=== PATIENT | female | born 1980 | race Caucasian/White ===

== ENCOUNTER 2018-12-22 13:44 | Emergency (ER) | payer SELFPAY ==
[2018-12-22] MEDS ORDERED: predniSONE 20 MG Tab PO ONE (14:23)
--- NOTE | 2018-12-22 14:26 | EDM.PDOC ---
ED HPI GENERAL MEDICAL PROBLEM - General Chief Complaint: Drug or Alcohol Abuse Stated Complaint: POSSIBLE OVERDOSE Time Seen by Provider: 12/22/18 14:09 Source of Information: Reports: Patient, RN Notes Reviewed (38-year-old female is brought in by EMS after apparent heroin overdose. What we understand she injected meth and heroin and then reportedly passed out. EMS was called IS seen but upon their arrival she had awakened. Information we are getting is from the commissioned police officer that has brought her here to the ED. When she did awaken she thoughts that perhaps she had accidentally injected some morphine unknowingly if the heroin had been "laced with morphine" he cut she felt like her throat was swollen and she does have history of prior allergic to morphine. Further has been no rash or hives. Her skin is not itchy. In no respiratory distress at time of my evaluation shortly after arrival to ED.) - History of Present Illness INITIAL COMMENTS - FREE TEXT/NARRATIVE: 38 year old female has been brought in by commissioned police officer for medical clearance after heroin injection, apparent overdose, possible allergic reaction. 911 was called by a friend or bystander when she apparently "passed out" after injecting meth and heroin. It sounds like there was a short interval of mouth-to -mouth resuscitation performed. On police and EMS arrival patient was awake and breathing. When she came to she felt like there was some swelling of her throat and therefore she thought that she might be reacting to morphine. That would be only if the heroin had been laced with morphine and she does have history of prior allergy to morphine. She's had no rash hives or itchiness similar to prior allergic reaction. - Related Data Allergies Allergy/AdvReac Type Severity Reaction Status Date / Time codeine Allergy Hives Verified 12/22/18 13:53 morphine Allergy Hives Verified 12/22/18 13:53 Penicillins Allergy Hives Verified 12/22/18 13:53 Home Meds: Home Meds . [No Known Home Meds] 12/22/18 [History] Past Medical History - Past Health History Medical/Surgical History: Denies Medical/Surgical History Social & Family History - Tobacco Use Smoking Status *Q: Current Every Day Smoker Years of Tobacco use: 6 Packs/Tins Daily: 1 - Caffeine Use Caffeine Use: Reports: Coffee - Recreational Drug Use Recreational Drug Use: Yes Drug Use in Last 12 Months: Yes Recreational Drug Type: Reports: Heroin, Methamphetamine Recreational Drug Use Frequency: Daily ED ROS GENERAL - Review of Systems Review Of Systems: See Below Constitutional: Denies: Fever, Chills, Diaphoresis HEENT: Reports: Throat Swelling (She feels like there has been some swelling of her throat) Respiratory: Reports: Shortness of Breath Cardiovascular: Denies: Chest Pain (Now better) GI/Abdominal: Denies: Abdominal Pain, Nausea, Vomiting Musculoskeletal: Denies: Shoulder Pain, Arm Pain, Back Pain, Leg Pain Skin: Reports: No Symptoms Neurological: Denies: Trouble Speaking, Difficulty Walking - Physical Exam Exam: See Below General Appearance: Alert, No Apparent Distress Eye Exam: Bilateral Eye: PERRL (Pupils are somewhat constricted bilateral but reactive) Throat/Mouth: Normal Inspection, Other (No evidence of pharyngeal or other swelling of the mouth or throat at this time, no evidence of tongue biting) Head Exam: Atraumatic Neck: Supple Respiratory/Chest: No Respiratory Distress, Lungs Clear, Normal Breath Sounds Cardiovascular: Regular Rate, Rhythm GI/Abdominal: Soft, Non-Tender Extremities: Other (She has some scar tissue injection site right antecubital space, not warm or erythematous) Skin Exam: Warm, Dry, Normal Color. No: Rash (No rash or hives, no evidence of itchiness) Course - Vital Signs Last Recorded V/S: Last Vital Signs Temp 97.1 F 12/22/18 13:50 Pulse 93 12/22/18 13:50 Resp 16 12/22/18 13:50 BP 140/84 12/22/18 13:50 Pulse Ox 97 12/22/18 13:50 - Orders/Labs/Meds Meds: Medications Discontinued Medications Generic Name Dose Route Start Last Admin Trade Name Freq PRN Reason Stop Dose Admin Sodium Chloride 1,000 mls @ 999 mls/hr 12/22/18 15:15 12/22/18 15:23 Normal Saline IV 999 mls/hr ONETIME MALLORY Administration Prednisone 40 mg 12/22/18 14:23 12/22/18 14:30 Prednisone PO 12/22/18 14:24 40 mg ONETIME ONE Administration Sodium Chloride 10 ml 12/22/18 15:04 12/22/18 15:23 Saline Flush FLUSH 10 ml ASDIRECTED PRN Administration Keep Vein Open - Re-Assessments/Exams Free Text/Narrative Re-Assessment/Exam: 12/23/18 20:24 Patient was given prednisone 40 mg by mouth. Out to drink fluids. She was observed for about 30-40 minutes, the plan was to discharge her let her go home but she did seem to be getting more drowsy so therefore we did give 1 L of normal saline over an hour, observed her for additional time. At time of discharge she was alert, ambulatory, no distress. At no time did she develop rash hives itchiness or any respiratory difficulty. Departure - Departure Time of Disposition: 14:22 Disposition: Home, Self-Care 01 Condition: Fair Clinical Impression: Opioid overdose Qualifiers: Encounter type: initial encounter Injury intent: accidental or unintentional Qualified Code(s): T40.2X1A - Poisoning by other opioids, accidental ( unintentional), initial encounter - Discharge Information Instructions: Opioid Overdose Referrals: PCP,None [Primary Care Provider] - Additional Instructions: A medical screening exam has been done. Patient is under the influence of heroin, possible meth. She is easily arouseable at this time, breathing with out difficulty, conversing appropriately, vital signs including 02 sats are normal. She has been given prednisone 40 mg PO for the possibility of allergic reaction to morphine but she has no throat or facial swelling, no rash or hives at this time. At this time there is no apparent acute medical emergency condition.
[2018-12-22] MEDS ORDERED: Sodium Chloride 0.9% 10 ML Syringe FLUSH PRN (15:04)
[2018-12-22] MEDS ORDERED: Sodium Chloride 0.9% 1,000 ML IV SCH (15:15)
== END 2018-12-22 16:32 | disposition home or self-care (01) ==
LOC: JD.ED 13:44
DX: T40.2X1A Poisoning by other opioids, accidental (unintentional), initial encounter (principal); F17.210 Nicotine dependence, cigarettes, uncomplicated; Z88.0 Allergy status to penicillin; Z88.5 Allergy status to narcotic agent
CPT/HCPCS: 96360; 99284; A9270; J7040